=== PATIENT | male | born 1980 | race Caucasian/White ===

== ENCOUNTER 2018-03-08 22:59 | Emergency (ER) | payer MEDICARE, MEDICAID ==
[2018-03-08] MEDS ORDERED: LIDOCAINE VISCOUS 2% 15 ML UDC MM STA (23:59)
[2018-03-08] MEDS ORDERED: FAMOTIDINE 20 MG TABLET PO STA (23:59)
[2018-03-08] MEDS ORDERED: MAG HYDROX/AL HYDROX/SIMETH 30 ML UDC PO STA (23:59)
--- NOTE | 2018-03-09 00:44 | ED Physician Documentation ---
History of Present Illness - Stated complaint Stated Complaint: DIFF SWALLOWING - Chief complaint Chief Complaint: Heent - History obtained from History obtained from: Family - History of Present Illness Timing: Today - Additonal information Additional information: Patient is a 37 year old male with mental retardation who is minimally verbal, and has a history of GERD who was brought in for suspected food foreign body in the esophagus. Family reports that the patient had a hot dog for lunch and it seemed to have gotten stuck. Patient continued to have to spit and was having trouble swallowing his saliva. Upon initial evaluation in the emergency department patient seemed to be doing better and was able to tolerate PO without difficulty. patient did seem to possibly have some GERD pain though. Review of Systems Unable to obtain: Other (non verbal) PD PAST MEDICAL HISTORY - Present Medications Home Medications: Ambulatory Orders Medication Instructions Recorded Confirmed Omeprazole 1 tab PO DAILY 03/08/18 03/08/18 - Allergies Allergies/Adverse Reactions: Allergies Allergy/AdvReac Type Severity Reaction Status Date / Time No Known Drug Allergies Allergy Verified 03/08/18 23:08 PD ED PE NORMAL - Vitals Vital signs reviewed: Yes - General General: No acute distress - HEENT HEENT: Atraumatic, Moist mucous membranes, Pharynx benign - Cardiac Cardiac: RRR - Respiratory Respiratory: No respiratory distress - Abdomen Abdomen: Non distended - Derm Derm: Normal color - Extremities Extremities: No deformity Results - Vitals Vitals: Vital Signs - 24 hr 03/08/18 03/09/18 23:02 00:50 Temperature 36.8 C Heart Rate 75 72 Respiratory 18 16 Rate Blood Pressure 134/77 H 129/71 O2 Saturation 99 99 Oxygen O2 Source Room air PD MEDICAL DECISION MAKING - ED course Complexity details: reviewed old records, re-evaluated patient, considered differential, d/w family ED course: Patient was seen and examined at bedside. Patient was well appearing in no distress. Patient was able to swallow PO without difficulty. Patient was treated with viscous lidocaine and maalox. Patient required no further inpatient work up at this time and was stable for discharge with outpatient follow up. - Sepsis Event Vital Signs: Vital Signs - 24 hr 03/08/18 03/09/18 23:02 00:50 Temperature 36.8 C Heart Rate 75 72 Respiratory 18 16 Rate Blood Pressure 134/77 H 129/71 O2 Saturation 99 99 Oxygen O2 Source Room air Departure - Departure Disposition: 01 Home, Self Care Clinical Impression: GERD (gastroesophageal reflux disease) Condition: Good Instructions: GERD Dc Follow-Up: primary,care provider [Other] - As Needed Comments: If there was a foreign body it has seemed to passed. make sure that you take smaller bites. For the GERD you should avoid acidic and spicy foods. you should follow up with the pmd when the patient returns home. you may return to the emergency department at any time for new, worsening or uncontrollable symptoms. Discharge Date/Time: 03/09/18 00:50
[2018-03-09 00:57] VITALS: BP 129/71
== END 2018-03-09 00:50 | disposition home or self-care (01) ==
LOC: ED 22:59
DX: K21.9 Gastro-esophageal reflux disease without esophagitis (principal)
CPT/HCPCS: 99283; A9270